=== PATIENT | male | born 1970 | race Caucasian/White ===

== ENCOUNTER 2018-11-20 12:33 | Emergency (ER) | payer BC, OTHER | END 2018-11-20 13:25 | disposition home or self-care (01) | LOC: FER 12:33 ==

== ENCOUNTER 2020-06-10 12:17 | Emergency (ER) | payer BC ==
[2020-06-10] MEDS ORDERED: BAMLANIVIMAB 700 MG in SODIUM CHLORIDE 180 ML IVPB ONE (13:05)
[2020-06-10 13:10] VITALS: BP 129/83; PULSE 96; TEMP 98.5; BMI 35.6
== END 2020-06-10 14:49 | disposition left against medical advice (07) ==
LOC: JER 12:17
DX: Z03.818 Encounter for observation for suspected exposure to other biological agents ruled out (principal)
CPT/HCPCS: 99281-25

== ENCOUNTER 2020-06-18 13:33 | Inpatient (IN) | payer BC ==
[2020-06-18 14:29] VITALS: BMI 33.6
[2020-06-18] MEDS ORDERED: DEXAMETHASONE SOD PHOSPHATE 4 MG/1 ML VIAL IVPUSH ONE (15:04)
[2020-06-18] MEDS ORDERED: SODIUM CHLORIDE 0.9% 500 ML INFUS.BAG IV ONE (15:06)
[2020-06-18] MEDS ORDERED: ACETAMINOPHEN 1000 MG/100 ML BAG IVPB ONE (15:06)
[2020-06-18] MEDS ORDERED: ACETAMINOPHEN INJECTION 100 ML IVPB ONE (15:07)
[2020-06-18] MEDS ORDERED: DEXAMETHASONE SOD PHOSPHATE 4 MG/1 ML VIAL ONE ×2 (15:35→22:35)
[2020-06-18 16:02] LABS: BASO % 0.2 % (0-2.0); EOS % 0.1 % (0-4.5); HEMATOCRIT 42.1 % (35.4-49); HEMOGLOBIN 14.7 GM/dL (11.7-16.9); LYMPH % 17.3 % (8-40); MCH 29.6 pg (25.7-33.7); MEAN CELL VOLUME 84.5 fl (80-96); MEAN PLT VOLUME 8.4 fl (7.5-11.1); MONO % 3.8 % (3.8-10.2); NEUT % 78.6 % (42.8-82.8); PLATELET COUNT 231 K/MM3 (134-434); RBC 4.99 M/mm3 (4.00-5.60); RDW 13.1 % (11.9-15.9); WHITE BLOOD COUNT 7.2 K/mm3 (4.0-10.0)
[2020-06-18 16:10] LABS: INR 1.05 (0.83-1.09); PROTHROMBIN TIME (PATIENT) 12.7 SEC (9.7-13.0)
[2020-06-18 16:11] LABS: CHLORIDE 94 mmol/L (98-107); SODIUM 134 mmol/L (136-145)
[2020-06-18 16:12] LABS: ACTIVATED PTT 28.3 SECONDS (25.2-36.5)
[2020-06-18 16:13] LABS: CALCIUM 8.2 mg/dL (8.5-10.1)
[2020-06-18 16:14] LABS: ALBUMIN 3.5 g/dl (3.4-5.0); ANION GAP 10 MMOL/L (8-16); BLOOD UREA NITROGEN 20.7 mg/dL (7-18); CO2 31 mmol/L (21-32); GLUCOSE,RANDOM 131 mg/dL (74-106)
[2020-06-18 16:16] LABS: BILIRUBIN,DIRECT 0.2 mg/dL (0.0-0.2)
[2020-06-18 16:17] LABS: CREATININE 0.9 mg/dL (0.55-1.3); SGOT/AST 53 U/L (15-37); SGPT/ALT 77 U/L (13-61)
[2020-06-18 16:18] LABS: LDH 455 U/L (87-246); TOT PROT 7.2 g/dl (6.4-8.2)
[2020-06-18 16:20] LABS: ALK PHOS 70 U/L (45-117)
[2020-06-18 16:39] LABS: ARTERIAL BLD GAS O2 SATURATION 93.5 mmHg (95-98); ARTERIAL BLOOD GAS BASE EXCESS 0.6 mmol/L (-2-2); ARTERIAL BLOOD GAS PO2 65.3 mmHg (80-100); ARTERIAL BLOOD GAS pH 7.433 (7.350-7.450)
[2020-06-18 16:48] LABS: ALLENS TEST POSITIVE; VENT MODE ROOM AIR
[2020-06-18] MEDS ORDERED: ZINC SULFATE 220 MG CAPSULE (FP) ONE (22:35)
[2020-06-18] MEDS ORDERED: ASCORBIC ACID 500 MG TABLET (FP) ONE (22:35)
[2020-06-18] MEDS: ZINC SULFATE 220 MG CAPSULE (FP) PO SCH (22:44)
[2020-06-18] MEDS: ASCORBIC ACID 500 MG TABLET (FP) PO SCH (22:44)
[2020-06-18] MEDS: DEXAMETHASONE SOD PHOSPHATE 4 MG/1 ML VIAL IVPUSH SCH (22:44)
[2020-06-18] MEDS: DEXTROSE 5%-0.45% SALINE 1,000 ML IV SCH (22:44)
[2020-06-19 06:52] LABS: BASO % 0.2 % (0-2.0); HEMATOCRIT 40.4 % (35.4-49); MCH 29.4 pg (25.7-33.7); MCHC 34.6 g/dl (32.0-35.9); MEAN CELL VOLUME 84.9 fl (80-96); MEAN PLT VOLUME 7.9 fl (7.5-11.1); NEUT % 76.8 % (42.8-82.8); PLATELET COUNT 236 K/MM3 (134-434); RBC 4.75 M/mm3 (4.00-5.60); RDW 13.1 % (11.9-15.9); WHITE BLOOD COUNT 4.3 K/mm3 (4.0-10.0)
[2020-06-19 07:12] LABS: CHLORIDE 99 mmol/L (98-107); SODIUM 133 mmol/L (136-145)
[2020-06-19 07:23] LABS: ALBUMIN 3.4 g/dl (3.4-5.0); BLOOD UREA NITROGEN 17.8 mg/dL (7-18)
[2020-06-19 07:24] LABS: ANION GAP 10 MMOL/L (8-16); CO2 23 mmol/L (21-32); GLUCOSE,RANDOM 245 mg/dL (74-106)
[2020-06-19 07:25] LABS: CALCIUM 8.2 mg/dL (8.5-10.1)
[2020-06-19 07:26] LABS: SGOT/AST 37 U/L (15-37); SGPT/ALT 78 U/L (13-61)
[2020-06-19 07:27] LABS: BILIRUBIN,TOTAL 0.8 mg/dL (0.2-1); CREATININE 0.8 mg/dL (0.55-1.3); TOT PROT 7.2 g/dl (6.4-8.2)
[2020-06-19 07:29] LABS: ALK PHOS 73 U/L (45-117)
[2020-06-19] MEDS ORDERED: ASCORBIC ACID 500 MG TABLET (FP) ONE (09:10)
[2020-06-19] MEDS ORDERED: ZINC SULFATE 220 MG CAPSULE (FP) ONE (09:11)
[2020-06-19] MEDS ORDERED: LISINOPRIL 20 MG TABLET ONE (09:11)
[2020-06-19] MEDS ORDERED: PANTOPRAZOLE 40 MG TABLET ONE (09:11)
[2020-06-19] MEDS ORDERED: DEXAMETHASONE SOD PHOSPHATE 10 MG/1 ML VIAL ONE (09:11)
[2020-06-19] MEDS ORDERED: ENOXAPARIN NA (PORCINE) 40 MG/0.4 ML DISP.SYRIN SQ ONE (09:12)
[2020-06-19] MEDS ORDERED: CHOLECALCIFEROL (VIT D3) 1,000 UNIT (25 MCG) TABLET ONE (09:12)
[2020-06-19] MEDS ORDERED: ACETAMINOPHEN 325 MG TABLET (FP) ONE (09:17)
[2020-06-19] MEDS: DEXAMETHASONE SOD PHOSPHATE 4 MG/1 ML VIAL IVPUSH SCH (09:40)
[2020-06-19] MEDS: ZINC SULFATE 220 MG CAPSULE (FP) PO SCH ×2 (09:40→21:50)
[2020-06-19] MEDS: CHOLECALCIFEROL (VIT D3) 1,000 UNIT (25 MCG) TABLET PO SCH (09:40)
[2020-06-19] MEDS: PANTOPRAZOLE 40 MG TABLET PO SCH (09:40)
[2020-06-19] MEDS: LISINOPRIL 20 MG TABLET PO SCH (09:40)
[2020-06-19] MEDS: ENOXAPARIN NA (PORCINE) 40 MG/0.4 ML DISP.SYRIN SQ SCH (09:40)
[2020-06-19] MEDS: ASCORBIC ACID 500 MG TABLET (FP) PO SCH ×2 (09:40→21:50)
[2020-06-19] MEDS: ACETAMINOPHEN 325 MG TABLET (FP) PO PRN (09:41)
[2020-06-19] MEDS: ATORVASTATIN CA 40 MG TABLET (FP) PO SCH (21:50)
[2020-06-19] MEDS ORDERED: REMDESIVIR 200 MG in SODIUM CHLORIDE 210 ML IVPB ONE (22:00)
[2020-06-19] MEDS: DEXTROSE 5%-0.45% SALINE 1,000 ML IV SCH (23:33)
[2020-06-20 08:20] LABS: BASO % 0.1 % (0-2.0); EOS % 0.1 % (0-4.5); HEMATOCRIT 38.2 % (35.4-49); HEMOGLOBIN 13.4 GM/dL (11.7-16.9); LYMPH % 20.2 % (8-40); MCH 29.5 pg (25.7-33.7); MCHC 35.1 g/dl (32.0-35.9); MEAN CELL VOLUME 84.2 fl (80-96); MEAN PLT VOLUME 7.9 fl (7.5-11.1); MONO % 6.7 % (3.8-10.2); NEUT % 72.9 % (42.8-82.8); PLATELET COUNT 234 K/MM3 (134-434); RBC 4.53 M/mm3 (4.00-5.60); RDW 13.3 % (11.9-15.9)
[2020-06-20 08:23] LABS: ALBUMIN 3.1 g/dl (3.4-5.0); BLOOD UREA NITROGEN 24.6 mg/dL (7-18); CALCIUM 8.2 mg/dL (8.5-10.1)
[2020-06-20 08:27] LABS: CREATININE 0.9 mg/dL (0.55-1.3)
[2020-06-20 08:28] LABS: BILIRUBIN,TOTAL 0.8 mg/dL (0.2-1); TOT PROT 6.6 g/dl (6.4-8.2)
[2020-06-20] MEDS: ENOXAPARIN NA (PORCINE) 40 MG/0.4 ML DISP.SYRIN SQ SCH (09:02)
[2020-06-20] MEDS: ZINC SULFATE 220 MG CAPSULE (FP) PO SCH ×2 (09:03→21:10)
[2020-06-20] MEDS: LISINOPRIL 20 MG TABLET PO SCH (09:03)
[2020-06-20] MEDS: CHOLECALCIFEROL (VIT D3) 1,000 UNIT (25 MCG) TABLET PO SCH (09:03)
[2020-06-20] MEDS: PANTOPRAZOLE 40 MG TABLET PO SCH (09:03)
[2020-06-20] MEDS: DEXAMETHASONE SOD PHOSPHATE 4 MG/1 ML VIAL IVPUSH SCH (09:03)
[2020-06-20] MEDS: ASCORBIC ACID 500 MG TABLET (FP) PO SCH ×2 (09:03→21:10)
[2020-06-20] MEDS ORDERED: guaiFENesin 200 MG/10 ML 10 ML UNIT-DOSE CUPS PO PRN (14:33)
[2020-06-20] MEDS ORDERED: PT OWN MED DRAWER 7, Y5N ONE (20:27)
[2020-06-20] MEDS: ATORVASTATIN CA 40 MG TABLET (FP) PO SCH (21:10)
[2020-06-20] MEDS: REMDESIVIR 100 MG in SODIUM CHLORIDE 230 ML IVPB SCH (21:10)
[2020-06-21] MEDS: LISINOPRIL 20 MG TABLET PO SCH (10:03)
[2020-06-21] MEDS: PANTOPRAZOLE 40 MG TABLET PO SCH (10:03)
[2020-06-21] MEDS: ZINC SULFATE 220 MG CAPSULE (FP) PO SCH ×2 (10:03→21:18)
[2020-06-21] MEDS: CHOLECALCIFEROL (VIT D3) 1,000 UNIT (25 MCG) TABLET PO SCH (10:03)
[2020-06-21] MEDS: DEXAMETHASONE SOD PHOSPHATE 4 MG/1 ML VIAL IVPUSH SCH (10:03)
[2020-06-21] MEDS: ENOXAPARIN NA (PORCINE) 40 MG/0.4 ML DISP.SYRIN SQ SCH (10:03)
[2020-06-21] MEDS: ASCORBIC ACID 500 MG TABLET (FP) PO SCH ×2 (10:03→21:18)
[2020-06-21] MEDS ORDERED: SODIUM CHLORIDE NASAL SPRAY 44 ML BOTTLE NS PRN (10:44)
[2020-06-21] MEDS: ACETAMINOPHEN 325 MG TABLET (FP) PO PRN (14:46)
[2020-06-21] MEDS: ATORVASTATIN CA 40 MG TABLET (FP) PO SCH (21:18)
[2020-06-21] MEDS: REMDESIVIR 100 MG in SODIUM CHLORIDE 230 ML IVPB SCH (21:43)
[2020-06-22 08:17] LABS: BASO % 0.3 % (0-2.0); EOS % 0.7 % (0-4.5); HEMATOCRIT 38.2 % (35.4-49); HEMOGLOBIN 13.3 GM/dL (11.7-16.9); LYMPH % 25.3 % (8-40); MCH 29.6 pg (25.7-33.7); MCHC 34.8 g/dl (32.0-35.9); MEAN CELL VOLUME 84.8 fl (80-96); MEAN PLT VOLUME 7.8 fl (7.5-11.1); MONO % 7.5 % (3.8-10.2); NEUT % 66.2 % (42.8-82.8); PLATELET COUNT 278 K/MM3 (134-434); RDW 13.1 % (11.9-15.9); WHITE BLOOD COUNT 6.9 K/mm3 (4.0-10.0)
[2020-06-22 08:46] LABS: ALBUMIN 3.1 g/dl (3.4-5.0); CALCIUM 8.6 mg/dL (8.5-10.1)
[2020-06-22 08:48] LABS: BILIRUBIN,TOTAL 0.6 mg/dL (0.2-1); TOT PROT 6.5 g/dl (6.4-8.2)
[2020-06-22 08:49] LABS: CREATININE 0.8 mg/dL (0.55-1.3)
[2020-06-22] MEDS: ZINC SULFATE 220 MG CAPSULE (FP) PO SCH ×2 (09:03→21:07)
[2020-06-22] MEDS: ENOXAPARIN NA (PORCINE) 40 MG/0.4 ML DISP.SYRIN SQ SCH (09:03)
[2020-06-22] MEDS: CHOLECALCIFEROL (VIT D3) 1,000 UNIT (25 MCG) TABLET PO SCH (09:03)
[2020-06-22] MEDS: LISINOPRIL 20 MG TABLET PO SCH (09:03)
[2020-06-22] MEDS: DEXAMETHASONE SOD PHOSPHATE 4 MG/1 ML VIAL IVPUSH SCH (09:03)
[2020-06-22] MEDS: PANTOPRAZOLE 40 MG TABLET PO SCH (09:03)
[2020-06-22] MEDS: ASCORBIC ACID 500 MG TABLET (FP) PO SCH ×2 (09:03→21:07)
[2020-06-22] MEDS: ATORVASTATIN CA 40 MG TABLET (FP) PO SCH (21:07)
[2020-06-22] MEDS: REMDESIVIR 100 MG in SODIUM CHLORIDE 230 ML IVPB SCH (21:07)
[2020-06-23] MEDS: DEXAMETHASONE SOD PHOSPHATE 4 MG/1 ML VIAL IVPUSH SCH (10:11)
[2020-06-23] MEDS: ZINC SULFATE 220 MG CAPSULE (FP) PO SCH ×2 (10:11→21:18)
[2020-06-23] MEDS: CHOLECALCIFEROL (VIT D3) 1,000 UNIT (25 MCG) TABLET PO SCH (10:11)
[2020-06-23] MEDS: ENOXAPARIN NA (PORCINE) 40 MG/0.4 ML DISP.SYRIN SQ SCH (10:11)
[2020-06-23] MEDS: LISINOPRIL 20 MG TABLET PO SCH (10:11)
[2020-06-23] MEDS: ASCORBIC ACID 500 MG TABLET (FP) PO SCH ×2 (10:11→21:18)
[2020-06-23] MEDS: PANTOPRAZOLE 40 MG TABLET PO SCH (10:11)
[2020-06-23] MEDS ORDERED: BENZOCAINE/MENTH/CETYLPYRD CL 1 EACH LOZENGE MM PRN (10:45)
[2020-06-23 16:05] VITALS: TEMP 98.2
[2020-06-23] MEDS: ATORVASTATIN CA 40 MG TABLET (FP) PO SCH (21:18)
[2020-06-23] MEDS: REMDESIVIR 100 MG in SODIUM CHLORIDE 230 ML IVPB SCH (21:18)
[2020-06-24 06:43] VITALS: BP 131/78; PULSE 73
[2020-06-24] MEDS ORDERED: PT OWN MED DRAWER 7, Y5N ONE (08:50)
[2020-06-24] MEDS: LISINOPRIL 20 MG TABLET PO SCH (09:02)
[2020-06-24] MEDS: ZINC SULFATE 220 MG CAPSULE (FP) PO SCH (09:02)
[2020-06-24] MEDS: ASCORBIC ACID 500 MG TABLET (FP) PO SCH (09:02)
[2020-06-24] MEDS: CHOLECALCIFEROL (VIT D3) 1,000 UNIT (25 MCG) TABLET PO SCH (09:02)
[2020-06-24] MEDS: ENOXAPARIN NA (PORCINE) 40 MG/0.4 ML DISP.SYRIN SQ SCH (09:02)
[2020-06-24] MEDS: PANTOPRAZOLE 40 MG TABLET PO SCH (09:02)
[2020-06-24] MEDS: DEXAMETHASONE SOD PHOSPHATE 4 MG/1 ML VIAL IVPUSH SCH (09:02)
== END 2020-06-24 14:39 | disposition home or self-care (01) | DRG 177 ==
LOC: JER 13:33 → JERBED 18:17 → J7W 06-19 14:47 → J8W 06-21 18:49
PROVIDERS: ADMIT Internal Medicine; ATTEND Internal Medicine
PROC: XW033E5 Introduction of Remdesivir Anti-infective into Peripheral Vein, Percutaneous Approach, New Technology Group 5 (ICD-10-PCS; 2020-06-19)
PROC: XW13325 Transfusion of Convalescent Plasma (Nonautologous) into Peripheral Vein, Percutaneous Approach, New Technology Group 5 (ICD-10-PCS; principal; 2020-06-20)
DX: U07.1 COVID-19 (principal); J12.82 Pneumonia due to coronavirus disease 2019; I10 Essential (primary) hypertension; E78.5 Hyperlipidemia, unspecified; M10.9 Gout, unspecified; E66.9 Obesity, unspecified; Z68.33 Body mass index [BMI] 33.0-33.9, adult; R09.02 Hypoxemia
CPT/HCPCS: 36415; 36430; 36600; 71045-TC-FY; 71250-TC; 80053; 82248; 82550; 82553; 82728; 82803; 83605; 83615; 84484; 85025; 85379; 85610; 85730; 86140; 86850; 86900; 86901; 87426; 93005; 93010; 94010; 99285-25; C9399; J0131; P9017

== ENCOUNTER 2022-09-23 06:49 | Day surgery (SDC) | payer BC ==
[2022-09-17 13:31] VITALS: BMI 33.2
[2022-09-23] MEDS ORDERED: LIDOCAINE HCL/PF 2% SDV 5ML VIAL ONE (07:09)
[2022-09-23] MEDS ORDERED: PROPOFOL 120 ML ONE (07:10)
[2022-09-23 08:51] VITALS: PULSE 73; RESP 18; TEMP 97.7
[2022-09-23 09:03] VITALS: BP 120/74
== END 2022-09-23 09:25 | disposition home or self-care (01) ==
LOC: FASU-ENDO 06:49
PROVIDERS: ATTEND Internal Medicine Gastroenterology
PROC: 0DB98ZX Excision of Duodenum, Via Natural or Artificial Opening Endoscopic, Diagnostic (ICD-10-PCS; 2022-09-23)
PROC: 0DB68ZX Excision of Stomach, Via Natural or Artificial Opening Endoscopic, Diagnostic (ICD-10-PCS; 2022-09-23)
PROC: 0DBN8ZX Excision of Sigmoid Colon, Via Natural or Artificial Opening Endoscopic, Diagnostic (ICD-10-PCS; principal; 2022-09-23 08:19)
DX: Z12.11 Encounter for screening for malignant neoplasm of colon (principal); K63.5 Polyp of colon; K29.50 Unspecified chronic gastritis without bleeding; K31.9 Disease of stomach and duodenum, unspecified; R12 Heartburn
CPT/HCPCS: 88305-TC; 88342-TC

== ENCOUNTER 2023-03-16 21:14 | Emergency (ER) | payer BC ==
[2023-03-16 21:28] VITALS: BP 142/95; PULSE 78; RESP 16; TEMP 98.3; BMI 33.0
[2023-03-16] MEDS ORDERED: DIPHTH,PERTUSS(ACELL),TET 0.5 ML DISP.SYRIN IM ONE ×2 (21:28→21:29)
[2023-03-16] MEDS ORDERED: CEPHALEXIN MONOHYDRATE 500 MG CAPSULE (UD) PO ONE (21:29)
[2023-03-16] MEDS ORDERED: CEPHALEXIN MONOHYDRATE 500 MG CAPSULE (UD) ONE (21:29)
== END 2023-03-16 21:40 | disposition home or self-care (01) ==
LOC: FER 21:14
PROC: 3E0234Z Introduction of Serum, Toxoid and Vaccine into Muscle, Percutaneous Approach (ICD-10-PCS; principal; 2023-03-16)
DX: S61.217A Laceration without foreign body of left little finger without damage to nail, initial encounter (principal); W26.8XXA Contact with other sharp object(s), not elsewhere classified, initial encounter
CPT/HCPCS: 90715; 99283-25